=== PATIENT | male | born 1945 | race Caucasian/White ===

== ENCOUNTER → 2018-08-17 | Outpatient (CLI) | payer OTHER, MEDICARE | END | disposition home or self-care (01) | LOC: RD 09:45 | DX: Z47.89 Encounter for other orthopedic aftercare (principal) ==

== ENCOUNTER → 2018-10-04 | Outpatient (CLI) | payer OTHER, MEDICARE | END | disposition home or self-care (01) | LOC: RD 11:11 | DX: Z47.89 Encounter for other orthopedic aftercare (principal) | CPT/HCPCS: J0171 ==

== ENCOUNTER 2019-03-05 12:50 | Emergency (ER) | payer OTHER, MEDICARE ==
[~2019-03-05] VITALS: Ht 177.8 cm; Wt 77.1 kg
[2019-03-05 13:14] VITALS: Ht 177.8 cm; Wt 77.1 kg
[2019-03-05 17:58] VITALS: BP 137/92
== END 2019-03-05 17:58 | disposition home or self-care (01) ==
LOC: ED 12:50
DX: I48.91 Unspecified atrial fibrillation (principal); I10 Essential (primary) hypertension; Z85.828 Personal history of other malignant neoplasm of skin; Z88.1 Allergy status to other antibiotic agents
CPT/HCPCS: 36415